=== PATIENT | male | born 1955 | race Caucasian/White ===

== ENCOUNTER → 2017-05-12 | Outpatient (CLI) | payer BC ==
[2017-05-12 09:53] LABS: ESTIMATED AVERAGE GLUCOSE 157 mg/dl; HA1C FLAG Normal (Normal)
[2017-05-12 10:00] LABS: ALB/GLOB RATIO 1.1 (0.9-2); ALKALINE PHOSPHATASE 111 U/L (45-117); ALT/SGPT 54 U/L (12-78); AST/SGOT 39 U/L (15-37); BLOOD UREA NITROGEN 18 mg/dl (7-18); BUN/CREATININE RATIO 24.1 (10-20); CALCIUM 9.1 mg/dl (8.5-10.1); CARBON DIOXIDE 27 mmol/L (21-32); CHLORIDE 106 mmol/L (98-107); CHOLESTEROL 124 mg/dl (0-200); CHOLESTEROL/HDL RATIO 3.4; CREATININE 0.73 mg/dl (0.60-1.40); GLUCOSE 133 mg/dl (70-99); HDL CHOLESTEROL 36 mg/dl; LDL CHOLESTEROL CALCULATED 68 mg/dl; POTASSIUM 3.9 mmol/L (3.5-5.1); SODIUM 139 mmol/L (136-145); TRIGLYCERIDES 102 mg/dl (0-150); VERY LOW DENSITY LIPOPROT CALC 20 mg/dl
== END | disposition home or self-care (01) ==
LOC: C.LAB1850 06:53
PROVIDERS: ATTEND Family Medicine
DX: E11.9 Type 2 diabetes mellitus without complications (principal); E55.9 Vitamin D deficiency, unspecified; E78.5 Hyperlipidemia, unspecified

== ENCOUNTER → 2017-09-26 | Outpatient (CLI) | payer BC ==
[2017-09-26 09:27] LABS: ESTIMATED AVERAGE GLUCOSE 137 mg/dl; HA1C FLAG Normal (Normal)
== END | disposition home or self-care (01) ==
LOC: C.LAB1850 07:54
PROVIDERS: ATTEND Nurse Practitioner Family
DX: E11.9 Type 2 diabetes mellitus without complications (principal)

== ENCOUNTER 2017-10-17 18:09 | Emergency (ER) | payer BC ==
[~2017-10-17] VITALS: Ht 185.4 cm; Wt 132.4 kg
[2017-10-17 18:15] VITALS: TEMP 36.9; Ht 185.4 cm; Wt 132.4 kg
[2017-10-17 18:45] VITALS: O2SAT 98
[2017-10-17] MEDS ORDERED: SODIUM CHLORIDE 0.9% 500ML 500 ML IV STA (18:47)
--- NOTE | 2017-10-17 18:55 | EMERGENCY ROOM VISIT NOTE ---
History Report prepared by Paulo: Cornelius Palacios Under the Supervision of: Dr. David Wells M.D. First contact with patient: 18:44 Chief Complaint: IRREGULAR HEARTBEAT Stated Complaint: IRREGULAR HEARTBEAT History of Present Illness The patient is a 61 year old male with a history of diabetes who presents to the Emergency Room with complaints of a persistent irregular heartbeat that started around 5 hours ago. The patient says that his heart feeling like it won' t slow down. He states that he has had this feeling in the past, but it would go away if he relaxed for a short while, but this time, the symptoms would not go away. He notes that his other symptoms included feeling sweaty and dehydrated. The patient says that he was at his doctor's office for a regularly scheduled appointment, and the irregular heartbeat was noted (atrial fibrillation), and the patient was sent here for evaluation. He notes for the past few weeks, he has been feeling badly with fatigue, feeling dehydrated, and diarrhea. The patient says that he started taking a new medication (a type of amphetamine, question of a switch from immediate release to delayed release) a few weeks ago, and since then, he has been having 4 to 5 episodes of diarrhea each day. He says that it has been a few months since he has had the irregular heartbeat. The patient states that he has a high stress job, which has been very stressful recently. The patient notes no history of clots or strokes. He denies any urinary symptoms. Source of History: patient, spouse/significant other Onset: 5 hours ago Position: other (heart - irregular heartbeat) Quality: other (won't slow down) Timing: other (persistent) Associated Symptoms: + diaphoresis, + diarrhea, + fatigue (and feels dehydrated), No urinary symptoms Review of Systems See HPI for pertinent positives and negatives. A total of ten systems were reviewed and were otherwise negative. Past Medical & Surgical Medical Problems: (1) Diabetes Family History No pertinent family history Social History Smoking Status: Never Smoker Drug Use: none Marital Status: Housing Status: lives with family Current/Historical Medications Scheduled Aspirin (Aspirin Ec), 81 MG PO DAILY Atorvastatin (Lipitor), 40 MG PO DAILY Cholecalciferol (D-5000), 1 TAB PO DAILY Cyanocobalamin (Cyanocobalamin), 1 ML IM MONTHLY Cyanocobalamin (Vitamin B-12), 1,000 MCG PO DAILY Insulin Aspart (Novolog), 16 UNITS SC TIDM Insulin Degludec (Tresiba Flextouch), 40 UNITS SC HS Lisinopril (Zestril), 40 MG PO DAILY Allergies Coded Allergies: No Known Allergies (Unverified , 10/17/17) Physical Exam Vital Signs Date Time Temp Pulse Resp B/P (MAP) Pulse Ox O2 Delivery O2 Flow Rate FiO2 10/17/17 23:38 96 16 137/79 98 10/17/17 22:55 95 10/17/17 22:43 106 16 129/108 98 Room Air 10/17/17 20:12 106 16 127/87 98 Room Air 10/17/17 18:45 98 Room Air 10/17/17 18:38 126 10/17/17 18:35 98 Room Air 10/17/17 18:15 36.9 145 16 122/82 96 Room Air Physical Exam GENERAL: Awake, alert, fatigued-appearing, in no distress HENT: Normocephalic, atraumatic. Dry mucous membranes. EYES: Normal conjunctiva. Sclera non-icteric. NECK: Supple. No nuchal rigidity. FROM. No JVD. RESPIRATORY: Clear to auscultation. CARDIAC: Irregularly irregular, and tachycardic. Extremities warm and well perfused. Pulses equal. ABDOMEN: Soft, non-distended. No tenderness to palpation. No rebound or guarding. No masses. RECTAL: Deferred. MUSCULOSKELETAL: Chest examination reveals no tenderness. The back is symmetrical on inspection without obvious abnormality. There is no CVA tenderness to palpation. No joint edema. LOWER EXTREMITIES: Calves are equal size bilaterally and non-tender. No edema. No discoloration. NEURO: Normal sensorium. No sensory or motor deficits noted. SKIN: No rash or jaundice noted. Medical Decision & Procedures ER Provider Diagnostic Interpretation: X-ray: Per my interpretation, radiologist review. CHEST ONE VIEW PORTABLE CLINICAL HISTORY: CHEST PAIN dyspnea COMPARISON STUDY: No previous studies for comparison. FINDINGS: Mild cardiomegaly. Diaphragms are smooth. Like atelectasis left base. Lungs otherwise appear clear. IMPRESSION: No acute process. Mild cardiomegaly. The above report was generated using voice recognition software. It may contain grammatical, syntax or spelling errors. Electronically signed by: Calvin Vasquez M.D. 10/17/2017 7:16 PM Dictated Date/Time: 10/17/2017 7:15 PM Laboratory Results 10/17/17 18:30 Red Blood Count 5.37, Mean Corpuscular Volume 86.4, Mean Corpuscular Hemoglobin 30.4, Mean Corpuscular Hemoglobin Concent 35.1, Mean Platelet Volume 10.1, Neutrophils (%) (Auto) 52.1, Lymphocytes (%) (Auto) 36.3, Monocytes (%) (Auto) 10.0, Eosinophils (%) (Auto) 0.9, Basophils (%) (Auto) 0.6, Neutrophils # (Auto ) 4.22, Lymphocytes # (Auto) 2.94, Monocytes # (Auto) 0.81, Eosinophils # (Auto ) 0.07, Basophils # (Auto) 0.05 10/17/17 18:30 Test 10/17/17 18:30 White Blood Count 8.10 K/uL (4.8-10.8) Red Blood Count 5.37 M/uL (4.7-6.1) Hemoglobin 16.3 g/dL (14.0-18.0) Hematocrit 46.4 % (42-52) Mean Corpuscular Volume 86.4 fL (80-100) Mean Corpuscular Hemoglobin 30.4 pg (25-34) Mean Corpuscular Hemoglobin Concent 35.1 g/dl (32-36) Platelet Count 357 K/uL (130-400) Mean Platelet Volume 10.1 fL (7.4-10.4) Neutrophils (%) (Auto) 52.1 % Lymphocytes (%) (Auto) 36.3 % Monocytes (%) (Auto) 10.0 % Eosinophils (%) (Auto) 0.9 % Basophils (%) (Auto) 0.6 % Neutrophils # (Auto) 4.22 K/uL (1.4-6.5) Lymphocytes # (Auto) 2.94 K/uL (1.2-3.4) Monocytes # (Auto) 0.81 K/uL (0.11-0.59) Eosinophils # (Auto) 0.07 K/uL (0-0.5) Basophils # (Auto) 0.05 K/uL (0-0.2) RDW Standard Deviation 42.4 fL (36.4-46.3) RDW Coefficient of Variation 13.4 % (11.5-14.5) Immature Granulocyte % (Auto) 0.1 % Immature Granulocyte # (Auto) 0.01 K/uL (0.00-0.02) Anion Gap 5.0 mmol/L (3-11) Est Creatinine Clear Calc Drug Dose 121.4 ml/min Estimated GFR () 105.7 Estimated GFR (Non- 91.2 BUN/Creatinine Ratio 21.0 (10-20) Calcium Level 9.2 mg/dl (8.5-10.1) Magnesium Level 2.3 mg/dl (1.8-2.4) Total Bilirubin 0.6 mg/dl (0.2-1) Direct Bilirubin 0.1 mg/dl (0-0.2) Aspartate Amino Transf (AST/SGOT) 30 U/L (15-37) Alanine Aminotransferase (ALT/SGPT) 51 U/L (12-78) Alkaline Phosphatase 94 U/L (45-117) Troponin I < 0.015 ng/ml (0-0.045) Pro-B-Type Natriuretic Peptide 1123 pg/ml (0-900) Total Protein 7.1 gm/dl (6.4-8.2) Albumin 3.8 gm/dl (3.4-5.0) Lipase 111 U/L (73-393) Thyroid Stimulating Hormone (TSH) 2.080 uIu/ml (0.300-4.500) Laboratory results reviewed by me Medications Administered Medications (Trade) Dose Ordered Sig/Len Route Start Time Stop Time Status Last Admin Dose Admin Sodium Chloride 500 ml @ 999 mls/hr Q31M STAT IV 10/17/17 18:47 10/17/17 19:17 DC 10/17/17 19:04 999 MLS/HR Sodium Chloride 1,000 ml @ 999 mls/hr Q1H1M STAT IV 10/17/17 20:16 10/17/17 21:16 DC 10/17/17 20:16 999 MLS/HR ECG Indication: palpitations Rate (beats per minute): 123 Rhythm: atrial fibrillation (with RVR) Findings: no acute ischemic change, left axis deviation Comparison ECG Date: no prior available Change: Repeat ECG: Rate controlled atrial fibrillation 94 bpm, left axis deviation, similar to prior. ED Course 1844: The patient was evaluated in room B9. A complete history and physical exam was performed. 2005: I reevaluated and updated the patient. 2299: I reevaluated the patient and he is resting comfortably. Discussed results and discharge instructions: he verbalized understanding and agreement. The patient is ready for discharge. Medical Decision I reviewed the patient's past medical history, medications, and the nursing notes as described above. Differential diagnosis: Etiologies such as premature contractions, electrolyte abnormality, cardiac dysrhythmia, thyroid dysfunction, pulmonary embolism, infection, gastrointestinal, as well as others were entertained. The patient is a 61 y/o gentlemen with a pmhx IDDM2 as well as recent on Phentermine for weight loss presents to the emergency department with fast irregular heart rate per HPI. Of note, patient feels as though his fast heart rate began today although he has been feeling poorly with daily diarrhea and feeling dehydrated for the past 1-2 weeks since receiving what he thinks was a new formulation of his phentermine. Arrives to the ED fatigue appearing in NAD, AF, IRIR HR to 130s. EKG demonstrates Afib with RVR. Given unclear onset of afib , not a candidate for cardioversion in the ED. Patient given IVF given his dry clinical appearance with improvement in rate to 90-100s with IVF alone. Labs unremarkable. CXR negative. Repeat EKG rate controlled but still in Afib. CHADSvasc = 1, thus anti-platelet therapy is reasonable for patient and moreover patient does not want to begin anticoagulation at this time. I also discussed considering low dose beta jem until he is able to f/u with pcp and cardiology however he preferred to hold off at this time given his improvement in hydration alone and possible association of his symptoms with his Phentermine, which he plans to discontinue. Findings and plan for follow-up reviewed with patient. Patient agreeable and d/c'd per discharge instructions. Medication Reconcilliation Current Medication List: was personally reviewed by me Blood Pressure Screening Patient's blood pressure: Normal blood pressure Impression Primary Impression: Atrial fibrillation with RVR Scribe Attestation The scribe's documentation has been prepared under my direction and personally reviewed by me in its entirety. I confirm that the note above accurately reflects all work, treatment, procedures, and medical decision making performed by me. Departure Information Dispostion Home / Self-Care Referrals No Doctor, Assigned (PCP) Kingsley Herr M.D. Patient Instructions Atrial Fibrillation Dc, My [facility] Additional Instructions Please follow up with your primary care physician and cardiology, Dr. Herr, next week for re-evaluation for your new-onset atrial fibrillation. Otherwise, your exam, EKG, chest xray, and lab results did not show signs of an emergent condition at this time. Atrial fibrillation caries a risk of stroke if not on a blood thinner. At this time it is recommend that you use a daily full dose aspirin. Return to the emergency department for worsening symptoms as described in the accompanying instructions.
[2017-10-17] MEDS ORDERED: CHOLTAB11 PO (19:01)
[2017-10-17] MEDS ORDERED: ASPI81TA28 PO (19:01)
[2017-10-17] MEDS ORDERED: LISI40TA PO (19:01)
[2017-10-17] MEDS ORDERED: NVLG SC (19:01)
[2017-10-17] MEDS ORDERED: PHEN30CA PO (19:01)
[2017-10-17] MEDS ORDERED: INSU1INJ32 SC (19:01)
[2017-10-17] MEDS ORDERED: CYNI1000 IM (19:01)
[2017-10-17] MEDS ORDERED: ATOR-24 PO (19:01)
[2017-10-17] MEDS ORDERED: CYAN10005 PO (19:01)
[2017-10-17 19:11] LABS: BASO % 0.6 %; BASO ABS # 0.05 K/uL (0-0.2); EOS % 0.9 %; EOS ABS # 0.07 K/uL (0-0.5); HEMATOCRIT 46.4 % (42-52); HEMOGLOBIN 16.3 g/dL (14.0-18.0); IG# 0.01 K/uL (0.00-0.02); LYMPH % 36.3 %; LYMPH ABS # 2.94 K/uL (1.2-3.4); MEAN CELL VOLUME 86.4 fL (80-100); MEAN CORPUSCULAR HEMOGLOBIN 30.4 pg (25-34); MEAN CORPUSCULAR HGB CONC 35.1 g/dl (32-36); MEAN PLATELET VOLUME 10.1 fL (7.4-10.4); MONO ABS # 0.81 K/uL (0.11-0.59); NEUT % 52.1 %; NEUT ABS # 4.22 K/uL (1.4-6.5); PLATELET COUNT 357 K/uL (130-400); RED CELL DISTRIBUTION WIDTH CV 13.4 % (11.5-14.5); RED CELL DISTRIBUTION WIDTH SD 42.4 fL (36.4-46.3)
--- NOTE | 2017-10-17 19:18 | DIAGNOSTIC IMAGING REPORT ---
CHEST ONE VIEW PORTABLE CLINICAL HISTORY: CHEST PAIN dyspnea COMPARISON STUDY: No previous studies for comparison. FINDINGS: Mild cardiomegaly. Diaphragms are smooth. Like atelectasis left base. Lungs otherwise appear clear. IMPRESSION: No acute process. Mild cardiomegaly. The above report was generated using voice recognition software. It may contain grammatical, syntax or spelling errors. Electronically signed by: Calvin Vasquez M.D. 10/17/2017 7:16 PM Dictated Date/Time: 10/17/2017 7:15 PM
[2017-10-17 19:32] LABS: ALBUMIN 3.8 gm/dl (3.4-5.0); ALT/SGPT 51 U/L (12-78); AST/SGOT 30 U/L (15-37); BLOOD UREA NITROGEN 19 mg/dl (7-18); CALCIUM 9.2 mg/dl (8.5-10.1); CARBON DIOXIDE 27 mmol/L (21-32); GLUCOSE 119 mg/dl (70-99); LIPASE 111 U/L (73-393); SODIUM 138 mmol/L (136-145)
[2017-10-17 19:43] LABS: ALKALINE PHOSPHATASE 94 U/L (45-117); TOTAL PROTEIN 7.1 gm/dl (6.4-8.2)
[2017-10-17] MEDS ORDERED: SODIUM CHLORIDE 0.9% 1000ML 1,000 ML IV STA (20:16)
[2017-10-17 23:38] VITALS: BP 137/79; PULSE 96; O2SAT 98
== END 2017-10-17 23:40 | disposition home or self-care (01) ==
LOC: C.EDB 18:11
DX: I48.91 Unspecified atrial fibrillation (principal); E11.9 Type 2 diabetes mellitus without complications; Z79.82 Long term (current) use of aspirin; Z79.4 Long term (current) use of insulin; Z79.899 Other long term (current) drug therapy

== ENCOUNTER → 2017-12-26 | Outpatient (CLI) | payer BC ==
[~2017-12-26] MED LIST: ASPI81TA28 PO; ATOR-24 PO; CHOLTAB11 PO; CYAN10005 PO; CYNI1000 IM; INSU1INJ32 SC; LISI40TA PO; NVLG SC
[2017-12-26 17:31] LABS: BASO % 1.1 %; BASO ABS # 0.08 K/uL (0-0.2); EOS % 0.7 %; EOS ABS # 0.05 K/uL (0-0.5); HEMATOCRIT 43.7 % (42-52); HEMOGLOBIN 15.2 g/dL (14.0-18.0); IG# 0.01 K/uL (0.00-0.02); LYMPH % 32.4 %; LYMPH ABS # 2.26 K/uL (1.2-3.4); MEAN CELL VOLUME 86.9 fL (80-100); MEAN CORPUSCULAR HEMOGLOBIN 30.2 pg (25-34); MEAN CORPUSCULAR HGB CONC 34.8 g/dl (32-36); MEAN PLATELET VOLUME 9.8 fL (7.4-10.4); MONO % 7.3 %; MONO ABS # 0.51 K/uL (0.11-0.59); NEUT % 58.4 %; NEUT ABS # 4.07 K/uL (1.4-6.5); PLATELET COUNT 355 K/uL (130-400); RED CELL DISTRIBUTION WIDTH CV 13.3 % (11.5-14.5); RED CELL DISTRIBUTION WIDTH SD 42.3 fL (36.4-46.3); WHITE BLOOD COUNT 6.98 K/uL (4.8-10.8)
[2017-12-26 17:49] LABS: ALBUMIN 3.9 gm/dl (3.4-5.0); ALT/SGPT 59 U/L (12-78); BLOOD UREA NITROGEN 18 mg/dl (7-18); CALCIUM 8.9 mg/dl (8.5-10.1); CARBON DIOXIDE 27 mmol/L (21-32); CREATININE 0.75 mg/dl (0.60-1.40); GLUCOSE 85 mg/dl (70-99); POTASSIUM 3.8 mmol/L (3.5-5.1); SODIUM 137 mmol/L (136-145)
[2017-12-26 18:00] LABS: ALKALINE PHOSPHATASE 91 U/L (45-117); AST/SGOT 47 U/L (15-37); TOTAL PROTEIN 7.4 gm/dl (6.4-8.2)
[2017-12-27 08:00] LABS: HEMOGLOBIN A1C 6.5 % (4.5-5.6)
== END | disposition home or self-care (01) ==
LOC: C.LAB1850 16:00
PROVIDERS: ATTEND Internal Medicine Endocrinology, Diabetes & Metabolism
DX: E11.65 Type 2 diabetes mellitus with hyperglycemia (principal); R19.7 Diarrhea, unspecified; A69.20 Lyme disease, unspecified; R53.81 Other malaise

== ENCOUNTER → 2017-12-29 | Outpatient (CLI) | payer BC | END | disposition home or self-care (01) | LOC: C.LAB1850 09:13 | PROVIDERS: ATTEND Internal Medicine Endocrinology, Diabetes & Metabolism | DX: E11.65 Type 2 diabetes mellitus with hyperglycemia (principal); R19.7 Diarrhea, unspecified ==